=== PATIENT | female | born 1985 | race Caucasian/White ===

== ENCOUNTER 2017-03-08 22:07 | Emergency (ER) | payer OTHER ==
[~2017-03-08 22:07] MED LIST: PCET PO; X5 PO; ZOFRAN ODT4 MG PO
[2017-03-08 22:23] LABS: BASOPHILS 0.3 %; BASOPHILS ABSOLUTE 0.03 10/3/uL (0.0-0.16); EOSINOPHILS 1.9 %; HEMATOCRIT 37.3 % (36.0-48.0); HEMOGLOBIN 12.8 g/dL (12.0-16.0); IMMATURE GRANULOCYTES 0.2 %; IMMATURE GRANULOCYTES ABSOLUTE 0.02 10/3/uL (0.0-0.11); LYMPHOCYTES 33.1 %; LYMPHOCYTES ABSOLUTE 3.52 10/3/uL (0.67-4.30); MEAN CORPUS HGB CONC 34.3 g/dL (32.0-36.0); MEAN CORPUSCULAR VOLUME 87.4 fL (80-100); MONOCYTES 6.9 %; MONOCYTES ABSOLUTE 0.73 10/3/uL (0.21-1.20); NEUTROPHILS 57.6 %; NEUTROPHILS ABSOLUTE 6.15 10/3/uL (2.02-8.40); PLATELET COUNT 261 10/3/uL (150-400); RBC DISTRIBUTION WIDTH 12.6 % (12.0-16.0); RED CELL COUNT 4.27 10/6/uL (4.0-5.6)
[2017-03-08 22:24] LABS: ER CBC TAT 0 Hrs 05 Mins; MANUAL DIFF NO %; WHITE BLOOD CELLS 10.7 10/3/uL (4.5-10.5)
[2017-03-08 22:25] LABS: ASCORBIC ACID (UR NOT ORDER) 40 (NEG); BILIRUBIN, URINE NEGATIVE (NEG); ER URINALYSIS TAT 0 Hrs 00 Mins; KETONE, URINE NEGATIVE (NEG); LEUKOCYTE ESTERASE(NOT OR SMALL (NEG); NITRITE (URINE) NEG (NEG); WBC (NOT ORDERED) (RFLEX) 20 (0-5)
[2017-03-08 22:34] LABS: BUN (BLOOD UREA NITROGEN) 15 MG/DL (6-23); CALCIUM, SERUM 9.3 MG/DL (8.5-10.4); CHLORIDE, SERUM 103 MMOL/L (96-112); GFR AFRICAN AMERICAN 77 ML/MIN (>=60); GFR NON AFRICAN AMERICAN 66 ML/MIN (>=60); GLUCOSE, SERUM 98 MG/DL (60-99); POTASSIUM, SERUM 3.5 MMOL/L (3.5-5.3); SODIUM, SERUM 143 MMOL/L (135-148)
[2017-03-08 22:35] LABS: CO2 (CARBON DIOXIDE) 34 MMOL/L (24-34)
[2017-03-15] MEDS ORDERED: KLONO1 PO (16:28)
[2017-03-15] MEDS ORDERED: ADVIL PO (16:43)
== END 2017-03-09 02:19 | disposition home or self-care (01) ==
LOC: ER 22:07
PROVIDERS: Specialist
DX: N13.2 Hydronephrosis with renal and ureteral calculous obstruction (principal); F17.200 Nicotine dependence, unspecified, uncomplicated; Z87.442 Personal history of urinary calculi; Z88.5 Allergy status to narcotic agent; Z79.899 Other long term (current) drug therapy
CPT/HCPCS: 74000; 74176; 80048; 81001; 84703; 85025; 87086; 96372; 99284

== ENCOUNTER 2017-03-17 07:43 | Day surgery (SDC) | payer OTHER ==
--- NOTE | ~2017-03-17 | OP ---
Record Of Operation [facility] [address] [place]. [address] NAME: KATEY WILKINS : [birth year] STATUS : [facility]#: [id number] AGE: 31 ADM/REG DATE : 03/17/17 MR#: [id number] REPORT SERV DATE: 03/17/17 DICTATED BY: Kerry TAYLOR DATE: 03/17/17 REPORT STATUS : Draft TRANSCRIBED BY: UVALDO DATE: 03/17/17 DATE OF PROCEDURE: 03/17/2017 PREOPERATIVE DIAGNOSIS: Left proximal ureteral stone, 7 mm. POSTOPERATIVE DIAGNOSIS: Left proximal ureteral stone, 7 mm. PROCEDURE: Left extracorporeal shockwave lithotripsy. ANESTHESIA: MAC. COMPLICATIONS: None. DRAINS: None. BRIEF HISTORY: Ms. Wilkins is a 31-year-old white female with a history of recurrent stone disease. She presented on 03/08/2017, with left flank pain and a 7 x 5 mm proximal stone on the left. It has remained in the same place since that time. We discussed options and decided to proceed with ESWL. The risks of bleeding, infection, anesthesia, injury to adjacent organs, need for retreatment, endoscopy, etc. were all discussed. There were no unanswered questions. DESCRIPTION OF PROCEDURE: Under excellent MAC anesthesia, the patient was placed supine on the Dornier Delta II lithotripsy machine. The stone remained in position at approximately just above the L4. It was localized at F2, and a total of 2500 shocks at power level up to 4 were delivered. The stone appeared to be at least partially fragmented. The patient tolerated the procedure well and will be discharged as an outpatient with the following instructions. DISCHARGE INSTRUCTIONS: 1. Home today. 2. Call for intractable pain or fever greater than 101. 3. Strain urine and save fragments. 4. Percocet 5/325 one to two p.o. q.4 hours p.r.n. pain, #25. 5. Follow up in my office in one to two weeks with a KUB and any collected fragments. RAIMUNDO/UVALDO Kerry Taylor M.D. / [id number] CC: Record Of Operation [address] [address] NAME: KATEY WILKINS : [birth year] STATUS : [facility]#: [id number] AGE: 31 ADM/REG DATE : 03/17/17 MR#: [id number] REPORT SERV DATE: 03/17/17 DICTATED BY: Kerry TAYLOR DATE: 03/17/17 REPORT STATUS : Draft TRANSCRIBED BY: UVALDO DATE: 03/17/17 Everardo Alonso M.D.
[~2017-03-17 07:43] MED LIST changes: +ADVIL PO; +KLONO1 PO
== END 2017-03-17 15:32 | disposition home or self-care (01) ==
LOC: SDC 07:43
PROC: 0TF7XZZ Fragmentation in Left Ureter, External Approach (ICD-10-PCS; principal; 2017-03-17 09:00)
DX: N20.1 Calculus of ureter (principal); F17.200 Nicotine dependence, unspecified, uncomplicated; K21.9 Gastro-esophageal reflux disease without esophagitis; F41.9 Anxiety disorder, unspecified; F41.0 Panic disorder [episodic paroxysmal anxiety]; Z88.5 Allergy status to narcotic agent; Z90.49 Acquired absence of other specified parts of digestive tract; Z87.442 Personal history of urinary calculi; Z98.890 Other specified postprocedural states
CPT/HCPCS: 50590; 74000; 84703; A9270-GY; J3010